=== PATIENT | female | born 1995 | race Caucasian/White ===

== ENCOUNTER 2023-07-28 11:27 | Emergency (ER) | payer OTHER, SELFPAY ==
[2023-07-28 11:32] VITALS: BP 146/81; PULSE 89; RESP 18; TEMP 36.6; O2SAT 98; BMI 38.7
--- NOTE | 2023-07-28 11:37 | ED.GENADULT ---
HPI - General Adult General Chief complaint: Animal Bite Stated complaint: Dog bite Time Seen by Provider: 07/28/23 13:04 Source: patient, family and RN notes reviewed Mode of arrival: ambulatory Limitations: no limitations History of Present Illness HPI narrative: 27 year old female with no significant pmhx presents to the ED today for evaluation of dog bite to left ankle occurring prior to arrival in ED. she states that she was on a walk with a friend as she is currently in town from [place] when a stray dog came up and bit her left ankle. She states that the dog had a collar however the owners were not around. The dog did not latch on to her leg or start pulling. Reports the area immediately began to bleed. She is currently in nursing school and believes her tetanus vaccine is up to date however is not 100% sure about this. She is requesting tetanus update today. No fever or chills. No numbness/tingling/weakness of the LLE. Ambulating with steady gait. Related Data Previous Rx's ?Medication ?Instructions ?Recorded amoxicillin 875 mg-potassium 1 tab PO Q12H 14 days #28 tabs 07/28/23 clavulanate 125 mg tablet Allergies Allergy/AdvReac Type Severity Reaction Status Date / Time No Known Allergies Allergy Verified 07/28/23 11:36 Review of Systems Review of Systems: Constitutional: No fever, chills, fatigue, night sweats, weight changes ENT/Mouth: No ear pain, hearing loss, nasal congestion, sinus pain, rhinorrhea, sore throat Eyes: No eye pain, swelling, redness, vision changes, discharge Cardio: No chest pain, palpitations, HANNON, orthopnea, peripheral edema Pulm: No SOB, cough, sputum, wheezing, dyspnea, hemoptysis GI: No nausea, vomiting, hematemesis, abdominal pain, diarrhea, constipation, hematochezia, melena : No irregular bleeding, dysuria, frequency, urgency, hesitancy, hematuria, flank pain, urinary flow changes, urinary incontinence or retention MSK: No back pain, neck pain, joint pain, myalgias Skin: No lesions, rashes, +dog bite to left ankle Neuro: No weakness, numbness, paresthesias, LOC, dizziness, headache Psych: No anxiety/panic, depression, SI/HI, AH/VH All other systems reviewed and are negative. [facility] Past Medical History Attestation statement: The following information was validated with the patient. Source: old records reviewed and nursing notes reviewed Social History Social History Advance Directives: No Advance Directives Information Provided: No Physical Exam ED Vital Signs: Vital Signs - 24 hr 07/28/23 11:32 07/28/23 13:49 07/28/23 14:29 Temperature 98 F 98 F Pulse Rate 89 85 85 Respiratory Rate 18 18 Blood Pressure 146/81 H 134/90 H 134/90 H Pulse Oximetry 98 99 99 Oxygen Delivery Method Room Air Room Air Room Air BMI result Body Mass Index 38.7 Patient slightly hypertensive, vitals otherwise wnl. Const General: cooperative, healthy appearing, comfortable and no acute distress Orientation/consciousness: patient oriented x3 Limitations: no limitations HENMT Head: Yes normal to inspection, Yes No palpable skull fracture present, Yes normocephalic and Yes atraumatic Eyes General: appearance normal, both eyes and all related structures Conjunctivae: conjunctivae normal Sclerae: sclerae normal Pupils: Equal, round and reactive pupils present Neck Neck: Yes normal visual inspection Chest Chest palpation & inspection: normal inspection of the chest and normal palpation of entire chest wall Resp Effort & Inspection: normal respiratory effort and able to speak in complete sentences Auscultation: clear to auscultation bilaterally Cardio Rate: regular rate Rhythm: regular rhythm Back/Spine/Pelvis Other: No midline spinous tenderness or step off deformity. No paraspinal muscle tenderness. Skin Other: + refer to below Neuro Other: Strength 5/5 intact throughout.?Sensation intact to light touch.? Neurovascular intact distally.? General: patient oriented x3 Cranial nerves: Yes Equal, round and reactive pupils present Extrem Other: + 3 cm linear bite note to anteriolateral aspect of distal left lower extremity, just proximal to ankle. 1 cm linear bite noted to anteromedial aspect of distal left lower extremity. no active bleeding or discharge. no retained fb. no involvement of deeper structures. no edema or swelling noted to lle. full rom intact to left knee, left ankle and all toes on left foot. 2+ dp/pt pulses intact. sensation intact. strength intact. ambulating with steady gait. Course Course Course Narrative: RME: 27 yold female presents to the ED for left ankle dog bite by stray dog. Patient states uptdate with tetanus. rabies vaccine, and immune globin ordered. Reevaluation(s) Reevaluation #1: 1400-- Tetanus updated. Rabies vaccine and immunoglobulin administered. Patient educated on rabies follow-up vaccinations. Bite extensively irrigated with saline and iodine. Wounds left open. Nonadherent dressing applied. radiographs not warranted at this time. Augmentin sent to pharmacy. Patient has remained stable throughout ED visit today. Discussed worrisome signs and symptoms and when to return to the ED. All questions answered at this time. Patient is agreeable with disposition and stable for discharge. Medications Administered Discontinued Medications Generic Name Dose Route Start Last Admin Trade Name Freq PRN Reason Stop Dose Admin Diphtheria/Tetanus/Acell Pertussis 0.5 ml 07/28/23 13:27 07/28/23 14:01 Diphth,Pertus(Acell),Tet Adult 0.5 Ml Syringe IM 07/28/23 13:28 0.5 ml .ONCE ONE Administration Oxycodone HCl 5 mg 07/28/23 13:29 07/28/23 13:39 Oxycodone Hcl Immed Release 5 Mg Tablet PO 07/28/23 13:30 5 mg ONCE ONE Administration Rabies Immune Globulin 1,800 unit 07/28/23 11:37 07/28/23 14:02 Rabies Immune Globulin/Pf 900 Unit/3 Ml Vial 20 unit/kg (1800 unit) 07/28/23 11:38 1,800 unit IM Administration ONCE ONE Rabies Vaccine Human Diploid Cell 1 ml 07/28/23 11:35 07/28/23 14:03 Rabies Vaccine, Human Diploid (Imovax) 1 Ml Vial IM 07/28/23 11:36 1 ml .ONCE ONE Administration Medical Decision Making Medical Decision Making MDM Narrative: 27 year old female with no significant pmhx presents to the ED today for evaluation of dog bite to left ankle occurring prior to arrival in ED. patient hypertensive, vitals otherwise wnl. she is nontoxic appearing and in NAD. 3 cm linear bite note to anteriolateral aspect of distal left lower extremity, just proximal to ankle. 1 cm linear bite noted to anteromedial aspect of distal left lower extremity. no active bleeding or discharge. no retained fb. no involvement of deeper structures. no edema or swelling noted to lle. full rom intact to left knee, left ankle and all toes on left foot. 2+ dp/pt pulses intact. sensation intact. strength intact. ambulating with steady gait. Differential diagnosis includes dog bite. unlikely retained fb, cellulitis, fracture, osteomyelitis, nv compromise, threat to limb, compartment syndrome. Plan for wash out and discharge. Differential Diagnosis Differential Diagnoses: The differential diagnosis associated with the presentation includes As above Admission/Observation Not indicated Independent Historian Clinical information obtained from an independent historian. History obtained from or confirmed by: Friend Prescription Management I considered prescription management with: Pain Medication and Antibiotic (augmentin) Social Determinants Patient?s care significantly limited by Social Determinants of Health including: Other Social Determinant of Health Critical Care Time Critical Care Time Critical Care Time: No Discharge Plan Discharge Clinical Impression: Dog bite Patient Disposition: Home, Self-Care Instructions: Amoxicillin/Clavulanate Potassium (By mouth), Animal Bite (ED), Rabies (ED) Additional Instructions: You were evaluated in the emergency department today for a dog bite to your left ankle. The area was cleaned and the wound was dressed. The lacerations were left open and were not repaired with sutures. Augmentin is an antibiotic that has been sent to your pharmacy. Take this twice daily for the next 14 days to prevent infection from dog bite. On Augmentin, softer bowel movements are to be expected. Call your provider if you move your bowels more than 4 times a day, your bowel movements are almost all liquid, or you get a rash.? You were given rabies vaccination. You have been provided with a schedule of when you need to follow-up for further vaccinations. Follow-up with your PCP for this in [place]. Your tetanus vaccination was updated today. Please return to the ED with new or worsening symptoms such as behavioral changes, worsening redness around the bite, fever/chills, nausea, vomiting or foaming from the mouth. In the case of an emergency call 911. Prescriptions: New amoxicillin-pot clavulanate 875-125 mg tablet 1 tab PO Q12H 14 Days Qty: 28 0RF Referrals: Physician,Unknown J [Primary Care Provider] - Interventions: ED Discharge Assessment Last Done: 07/28/23 14:29 Discharge Date/Time: 07/28/23 14:30 Print Language: [place] African
[2023-07-28] MEDS: oxyCODONE HCl Immed Release 5 MG TABLET PO (13:39)
[2023-07-28 13:49] VITALS: BP 134/90; PULSE 85; O2SAT 99
[2023-07-28] MEDS: Diphth,Pertus(ACell),Tet Adult 0.5 ML SYRINGE IM (14:01)
[2023-07-28] MEDS: Rabies Immune Globulin/PF 900 UNIT/3 ML VIAL 1800 UNIT IM (14:02)
[2023-07-28] MEDS: Rabies Vaccine, Human Diploid (Imovax) 1 ML VIAL IM (14:03)
[2023-07-28 14:29] VITALS: BP 134/90; PULSE 85; RESP 18; TEMP 36.6; O2SAT 99
== END 2023-07-28 14:30 | disposition home or self-care (01) ==
PROVIDERS: Emergency Provider Emergency Medicine
DX: S91.052A Open bite, left ankle, initial encounter (principal); M25.572 Pain in left ankle and joints of left foot; W54.0XXA Bitten by dog, initial encounter; Y93.9 Activity, unspecified; Y92.9 Unspecified place or not applicable; Y99.8 Other external cause status; Z20.3 Contact with and (suspected) exposure to rabies; Z29.14 Encounter for prophylactic rabies immune globulin; Z23 Encounter for immunization
CPT/HCPCS: 90375; 90471; 90472; 90675; 90715; 96372; 99283; 99284